=== PATIENT | male | born 1935 | race Hispanic/Latino ===

== ENCOUNTER 2020-08-13 13:00 | Inpatient (IN) | payer MEDICARE ==
[~2020-08-13] VITALS: Ht 175.3 cm; Wt 86.3 kg
[2020-08-17] MEDS ORDERED: SILO8CAP2 PO (13:22)
[2020-08-17] MEDS ORDERED: AMLO5TAB4 PO (13:22)
[2020-08-17] MEDS ORDERED: ALLO300T2 PO (13:22)
[2020-08-17] MEDS ORDERED: LISI1TAB51 PO (13:22)
[2020-08-18] VITALS (34 sets, daily range): BP systolic 88–151; BP diastolic 26–88
[2020-08-18] MEDS ORDERED: SODIUM CHLORIDE 0.9% 500ML 500 ML IV SCH (05:00)
[2020-08-18] MEDS ORDERED: LACTATED RINGERS 1000ML 1,000 ML IV ONE (05:13)
[2020-08-18] MEDS ORDERED: OMEP40CA13 PO (06:32)
[2020-08-18 06:57] LABS: INR 0.96 (0.85-1.15); PARTIAL THROMBOPLASTIN TIME 26.8 SEC (26.3-35.5); PROTHROMBIN TIME 10.4 SEC (9.6-11.6)
[2020-08-18] MEDS ORDERED: IODIXANOL 320 MG/ML 100 ML VIAL ONE (07:03)
[2020-08-18] MEDS ORDERED: HEPARIN SODIUM 1000UNIT/ML 10ML VIAL ONE ×2 (07:03→08:07)
[2020-08-18] MEDS ORDERED: PROPOFOL 10 MG/ML 20ML VIAL IV ONE (07:13)
[2020-08-18] MEDS ORDERED: MIDAZOLAM HCL 1 MG/ML 2ML VIAL ONE (07:13)
[2020-08-18] MEDS ORDERED: ROCURONIUM BROMIDE 10MG/1ML 5ML VL ONE ×2 (07:25→08:22)
[2020-08-18] MEDS ORDERED: LIDOCAINE HCL 1% 20 ML VIAL ONE (07:26)
[2020-08-18] MEDS ORDERED: CEFAZOLIN SODIUM 1 GM VIAL ONE (08:06)
[2020-08-18] MEDS ORDERED: ATROPINE SULFATE 0.1 MG/ML 10 ML SYG IVP ONE (08:11)
[2020-08-18] MEDS ORDERED: GLYCOPYRROLATE 0.2 MG/ML 5 ML VIAL ONE ×2 (08:12→09:45)
[2020-08-18] MEDS ORDERED: FENTANYL CITRATE PF 50 MCG/1 ML 2ML VIAL ONE (08:21)
[2020-08-18] MEDS ORDERED: NEOSTIGMINE 5MG/5ML SYR IV ONE (09:45)
[2020-08-18] MEDS ORDERED: ASPIRIN 81 MG EC TAB PO SCH (10:00)
[2020-08-18] MEDS ORDERED: NOREPINEPHRINE 4MG/NS 250ML 250 ML IV PRN (10:00)
[2020-08-18] MEDS ORDERED: MORPHINE SULFATE 4 MG/1ML SYG IV PRN (10:00)
[2020-08-18] MEDS ORDERED: SODIUM CHLORIDE 0.9% 1000ML 1,000 ML IV SCH (10:00)
[2020-08-18] MEDS ORDERED: NITROGLYCERIN 50 MG/D5% WATER 250 BOT IV PRN (10:00)
[2020-08-18] MEDS ORDERED: ACETAMINOPHEN 325 MG TAB PO PRN (10:00)
[2020-08-18] MEDS ORDERED: ONDANSETRON HCL 4 MG/2 ML VIAL IV PRN (10:00)
[2020-08-18] MEDS ORDERED: LISINOPRIL 20 MG TABLET PO SCH (10:11)
[2020-08-18] MEDS ORDERED: PHARMACY COMMUNICATION MISC SCH (11:00)
[2020-08-18] MEDS ORDERED: OXYBUTYNIN 5 MG TAB.SR.24H PO SCH (11:43)
[2020-08-18 12:50] LABS: INR 1.02 (0.85-1.15); PARTIAL THROMBOPLASTIN TIME 57.2 SEC (26.3-35.5)
[2020-08-18] MEDS ORDERED: CEFAZOLIN SODIUM 1 GM VIAL IVP SCH (16:00)
[2020-08-18] MEDS ORDERED: PANTOPRAZOLE SODIUM 40 MG TABLET.DR PO SCH (21:00)
[2020-08-18] MEDS ORDERED: AMLODIPINE BESYLATE 5 MG TAB PO SCH (21:00)
[2020-08-18] MEDS ORDERED: ALLOPURINOL 300 MG TABLET PO SCH (21:00)
[2020-08-19] VITALS (8 sets, daily range): BP systolic 96–124; BP diastolic 40–66
[2020-08-19 03:51] LABS: BASOPHILS % (AUTO) 0.2 % (0.0-5.0); EOSINOPHILS % (AUTO) 0.1 % (0.0-8.0); HEMATOCRIT 32.6 % (42-54); MEAN CORPUSCULAR HEMOGLOBIN 34.9 pg (27.0-33.0); MEAN CORPUSCULAR HGB CONC 36.5 g/dL (32.0-36.0); MEAN CORPUSCULAR VOLUME 95.6 fL (79-99); MONOCYTES % (AUTO) 11.9 % (3.0-13.0); NEUTROPHILS % (AUTO) 67.5 % (40.0-77.0); PLATELET COUNT (AUTO) 165 K/uL (130-400); RED BLOOD CELL COUNT(AUTO) 3.41 MIL/uL (4.50-6.20); WHITE BLOOD COUNT (AUTO) 12.3 K/uL (4.8-10.8)
[2020-08-19 04:07] LABS: POTASSIUM 3.5 mmol/L (3.5-5.1)
[2020-08-19] MEDS ORDERED: HYDROCHLOROTHIAZIDE 25 MG TABLET PO SCH (09:00)
== END 2020-08-19 09:00 | disposition home or self-care (01) | DRG 269 ==
LOC: EDSTATUS 13:00 → DAHIP 08-18 05:30 → 2CH 08-18 09:45
PROVIDERS: ADMIT Internal Medicine; ATTEND Internal Medicine
PROC: B4101ZZ Fluoroscopy of Abdominal Aorta using Low Osmolar Contrast (ICD-10-PCS; principal; 2020-08-18)
PROC: 04V03EZ Restriction of Abdominal Aorta with Branched or Fenestrated Intraluminal Device, One or Two Arteries, Percutaneous Approach (ICD-10-PCS; 2020-08-18)
DX: I71.4 Abdominal aortic aneurysm, without rupture (principal); E78.5 Hyperlipidemia, unspecified; I10 Essential (primary) hypertension; I72.3 Aneurysm of iliac artery; N40.0 Benign prostatic hyperplasia without lower urinary tract symptoms; H40.9 Unspecified glaucoma; Z85.46 Personal history of malignant neoplasm of prostate; Z20.828 Contact with and (suspected) exposure to other viral communicable diseases
CPT/HCPCS: 34705; 34713; 36415; 80048; 85025; 85347; 85610; 85730; 86850; 86900; 86901; 86923; A4344; A4606; C1725; C1760; C1769; C1887; C1894; G0378; J0461; J0690; J1644; J2250; J2704; J2710; J3010; J3490; J7120; Q9967; U0003